=== PATIENT | male | born 1945 | race African-American/Black ===

== ENCOUNTER 2023-01-03 15:53 | Inpatient (IN) | payer MEDICARE, MEDICAID ==
[~2023-01-03] VITALS: Ht 185.4 cm; Wt 111.1 kg
[~2023-01-03 15:53] MED LIST: AMLO5TAB4 MT; ASPI-1497 PO; ATOR40TA70 PO; BENA40TA91 PO; GLIP5TAB12 PO; HYDR-4135 MT; METO-396 PO
[2023-01-03] MEDS ORDERED: ONDANSETRON HCL 4MG/2ML INJ IV STA (16:07)
[2023-01-03] MEDS ORDERED: MORPHINE SULFATE 4 MG/ML CPJ (NOT FOR IM USE) IV STA (16:07)
[2023-01-03] MEDS ORDERED: HYDRALAZINE 20MG/ML VIAL IV ONE (16:15)
[2023-01-03] MEDS ORDERED: SODIUM CHLORIDE 0.9% 1,000 ML IV ONE (16:15)
[2023-01-03 17:20] LABS: CHLORIDE 99 mEq/L (98-107)
[2023-01-03 17:23] LABS: HEMATOCRIT. 43.3 % (42.0-52.0); HEMOGLOBIN. 14.2 g/dL (14.0-18.0); MEAN CORPUSCULAR HEMOGLOBIN 27.3 pg (28.0-32.0); MEAN CORPUSCULAR VOLUME 82.9 fL (80.0-94.0); MEAN PLATELET VOLUME 11.2 fl (7.4-10.4); PLATELET 137 x1000/uL (130-400); RED BLOOD CELL COUNT 5.22 mill/uL (4.7-6.1); RED CELL DISTRIBUTION WIDTH 16.5 % (11.6-14.6)
[2023-01-03] MEDS ORDERED: ACETAMINOPHEN 325MG TABLET PO ONE (17:30)
[2023-01-03 17:36] LABS: INR 1.2; PARTIAL THROMBOPLASTIN TIME 29.6 sec (23.4-31.0); PROTHROMBIN TIME 12.4 sec (9.6-11.0)
[2023-01-03 17:46] LABS: CLARITY URINE CLEAR (CLEAR); COLOR URINE YELLOW (YELLOW); KETONES URINE NEGATIVE (NEGATIVE); LEUKOCYTE ESTERASE URINE NEGATIVE (NEGATIVE); NITRITE URINE NEGATIVE (NEGATIVE); OCCULT BLOOD URINE NEGATIVE (NEGATIVE); PH URINE 6.5 (4.5-8.0); PROTEIN URINE 3+ (NEGATIVE); SPECIFIC GRAVITY URINE 1.015 (1.005-1.030); UROBILINOGEN URINE 0.2 E.U./dL (0.2-1.0)
[2023-01-03] MEDS ORDERED: VANCOMYCIN 1G PREMIX 200 ML IV ONE (18:00)
[2023-01-03] MEDS ORDERED: PIPERACILLIN/TAZ 3.375G PREMIX 50 ML IV ONE (18:00)
[2023-01-03] MEDS ORDERED: VANCOMYCIN 1G PREMIX 200 ML IV NR (19:30)
[2023-01-03] MEDS ORDERED: ACETAMINOPHEN 325MG TABLET PO NR (19:30)
[2023-01-03] MEDS ORDERED: FUROSEMIDE 40MG/4ML VIAL IVP ONE (20:15)
[2023-01-03 20:34] LABS: PLATELET ESTIMATE NORMAL
[2023-01-03 23:30] VITALS: BP 148/96
[2023-01-04 03:59] VITALS: BP 150/89
[2023-01-04] MEDS ORDERED: DEXT 5%/0.9% NACL 1,000 ML IV SCH (06:00)
[2023-01-04] MEDS ORDERED: LACTULOSE 20G/30ML UDC PO PRN (06:00)
[2023-01-04] MEDS: PIPERACILLIN/TAZOBACTAM 3.375 G in DEXTROSE 5% WATER 50 ML IV SCH ×2 (07:01→14:20)
[2023-01-04 08:00] VITALS: BP 131/85
[2023-01-04] MEDS ORDERED: DEXTROSE 50% WATER 50ML SYRINGE IV PRN (08:00)
[2023-01-04] MEDS: ENOXAPARIN 30MG/0.3ML SYR SUBCUT SCH ×2 (08:33→21:02)
[2023-01-04] MEDS: INSULIN LISPRO 100 UNITS/ML SUBCUT SCH ×4 (08:35→21:02)
[2023-01-04] MEDS: PANTOPRAZOLE 40MG DR TABLET PO SCH (08:35)
[2023-01-04] MEDS ORDERED: ENOXAPARIN 40MG/0.4ML SYR SUBCUT SCH (09:00)
[2023-01-04] MEDS: BLOOD SUGAR DIAGNOSTIC STRIP TEST SCH ×3 (11:50→20:55)
[2023-01-04 12:00] VITALS: BP 143/72
[2023-01-04 16:00] VITALS: BP 124/63
[2023-01-04 20:00] VITALS: BP 120/74
[2023-01-05] VITALS: BP 126/74
[2023-01-05 01:03] LABS: BASOPHILS % 0.3 % (0.0-2.0); EOSINOPHILS % 0.6 % (0.0-5.0); HEMATOCRIT. 41.2 % (42.0-52.0); HEMOGLOBIN. 13.5 g/dL (14.0-18.0); LYMPHOCYTES % 7.5 % (20.0-50.0); MEAN CORPUSCULAR HEMOGLOBIN 27.1 pg (28.0-32.0); MEAN CORPUSCULAR VOLUME 82.5 fL (80.0-94.0); MEAN PLATELET VOLUME 10.1 fl (7.4-10.4); MONOCYTES % 4.5 % (2.0-8.0); NEUTROPHILS % 87.1 % (40.0-76.0); PLATELET 124 x1000/uL (130-400); RED BLOOD CELL COUNT 4.99 mill/uL (4.7-6.1); RED CELL DISTRIBUTION WIDTH 17.3 % (11.6-14.6)
[2023-01-05 01:15] LABS: CHLORIDE 101 mEq/L (98-107)
[2023-01-05] MEDS ORDERED: POTASSIUM CHLORIDE INJ 40 MEQ in DEXT 5% WATER 250 ML IV ONE (02:45)
[2023-01-05] MEDS: KCL 20MEQ/100ML X 2 FOR TOTAL KCL 40MEQ/200ML IV SCH ×2 (03:02→06:58)
[2023-01-05 04:00] VITALS: BP 135/87
[2023-01-05] MEDS: PIPERACILLIN/TAZOBACTAM 3.375 G in DEXTROSE 5% WATER 50 ML IV SCH ×4 (06:58→14:29)
[2023-01-05] MEDS: BLOOD SUGAR DIAGNOSTIC STRIP TEST SCH ×4 (07:12→21:22)
[2023-01-05 08:00] VITALS: BP 145/74
[2023-01-05] MEDS: INSULIN LISPRO 100 UNITS/ML SUBCUT SCH ×4 (08:33→21:29)
[2023-01-05] MEDS: ENOXAPARIN 30MG/0.3ML SYR SUBCUT SCH ×2 (08:35→21:28)
[2023-01-05] MEDS: PANTOPRAZOLE 40MG DR TABLET PO SCH (08:35)
[2023-01-05] MEDS: HYDRALAZINE 20MG/ML VIAL IV PRN (11:49)
[2023-01-05 12:00] VITALS: BP 128/74
[2023-01-05 16:00] VITALS: BP 139/92
[2023-01-05 20:00] VITALS: BP 135/85
[2023-01-05 20:21] LABS: CLARITY URINE CLEAR (CLEAR); COLOR URINE YELLOW (YELLOW); KETONES URINE NEGATIVE (NEGATIVE); LEUKOCYTE ESTERASE URINE NEGATIVE (NEGATIVE); NITRITE URINE NEGATIVE (NEGATIVE); OCCULT BLOOD URINE TRACE (NEGATIVE); PH URINE 6.5 (4.5-8.0); PROTEIN URINE 4+ (NEGATIVE); SPECIFIC GRAVITY URINE 1.027 (1.005-1.030); UROBILINOGEN URINE 0.2 E.U./dL (0.2-1.0)
[2023-01-05 20:46] LABS: CHLORIDE 101 mEq/L (98-107)
[2023-01-06] VITALS: BP 112/59
[2023-01-06] MEDS: PIPERACILLIN/TAZOBACTAM 3.375 G in DEXTROSE 5% WATER 50 ML IV SCH ×4 (00:55→21:54)
[2023-01-06 04:00] VITALS: BP 118/76
[2023-01-06] MEDS: BLOOD SUGAR DIAGNOSTIC STRIP TEST SCH ×4 (06:43→21:47)
[2023-01-06 08:00] VITALS: BP 121/71
[2023-01-06] MEDS: INSULIN LISPRO 100 UNITS/ML SUBCUT SCH ×4 (08:33→21:55)
[2023-01-06] MEDS: ENOXAPARIN 30MG/0.3ML SYR SUBCUT SCH ×2 (08:34→21:54)
[2023-01-06] MEDS: FAMOTIDINE 20MG TABLET PO SCH ×2 (08:35→21:54)
[2023-01-06 12:00] VITALS: BP 143/81
[2023-01-06] MEDS ORDERED: POTASSIUM CHLORIDE 20MEQ TABLET SR PO SCH (12:00)
[2023-01-06 16:00] VITALS: BP 129/71
[2023-01-06 16:01] LABS: BASOPHILS % 0.3 % (0.0-2.0); EOSINOPHILS % 0.6 % (0.0-5.0); HEMATOCRIT. 40.8 % (42.0-52.0); HEMOGLOBIN. 13.3 g/dL (14.0-18.0); LYMPHOCYTES % 11.4 % (20.0-50.0); MEAN CORPUSCULAR HEMOGLOBIN 27.5 pg (28.0-32.0); MEAN CORPUSCULAR VOLUME 84.2 fL (80.0-94.0); MEAN PLATELET VOLUME 10.3 fl (7.4-10.4); MONOCYTES % 3.5 % (2.0-8.0); NEUTROPHILS % 84.2 % (40.0-76.0); PLATELET 122 x1000/uL (130-400); RED BLOOD CELL COUNT 4.84 mill/uL (4.7-6.1); RED CELL DISTRIBUTION WIDTH 17.1 % (11.6-14.6)
[2023-01-06 16:19] LABS: CHLORIDE 100 mEq/L (98-107)
[2023-01-06 20:00] VITALS: BP 123/81
[2023-01-07] VITALS: BP 123/73
[2023-01-07 04:00] VITALS: BP 146/61
[2023-01-07] MEDS: PIPERACILLIN/TAZOBACTAM 3.375 G in DEXTROSE 5% WATER 50 ML IV SCH ×3 (05:27→22:43)
[2023-01-07] MEDS: BLOOD SUGAR DIAGNOSTIC STRIP TEST SCH ×4 (06:17→22:27)
[2023-01-07 06:54] LABS: CHLORIDE 102 mEq/L (98-107)
[2023-01-07 06:55] LABS: BASOPHILS % 0.3 % (0.0-2.0); HEMATOCRIT. 39.4 % (42.0-52.0); HEMOGLOBIN. 13.1 g/dL (14.0-18.0); LYMPHOCYTES % 11.6 % (20.0-50.0); MEAN CORPUSCULAR HEMOGLOBIN 27.8 pg (28.0-32.0); MEAN CORPUSCULAR VOLUME 83.4 fL (80.0-94.0); MEAN PLATELET VOLUME 10.6 fl (7.4-10.4); MONOCYTES % 3.8 % (2.0-8.0); NEUTROPHILS % 83.3 % (40.0-76.0); PLATELET 112 x1000/uL (130-400); RED BLOOD CELL COUNT 4.72 mill/uL (4.7-6.1); RED CELL DISTRIBUTION WIDTH 17.5 % (11.6-14.6)
[2023-01-07] MEDS: INSULIN LISPRO 100 UNITS/ML SUBCUT SCH ×4 (07:20→22:56)
[2023-01-07 08:00] VITALS: BP 144/78
[2023-01-07] MEDS: FAMOTIDINE 20MG TABLET PO SCH ×2 (09:28→22:42)
[2023-01-07] MEDS: ENOXAPARIN 30MG/0.3ML SYR SUBCUT SCH ×2 (09:28→22:42)
[2023-01-07 12:00] VITALS: BP 141/71
[2023-01-07 16:00] VITALS: BP 139/73
[2023-01-07 20:00] VITALS: BP 141/69
[2023-01-08] VITALS: BP 142/88
[2023-01-08 04:19] VITALS: BP 147/77
[2023-01-08] MEDS: PIPERACILLIN/TAZOBACTAM 3.375 G in DEXTROSE 5% WATER 50 ML IV SCH ×3 (05:54→22:41)
[2023-01-08] MEDS: BLOOD SUGAR DIAGNOSTIC STRIP TEST SCH ×4 (06:06→20:41)
[2023-01-08 08:00] VITALS: BP 157/90
[2023-01-08] MEDS: FAMOTIDINE 20MG TABLET PO SCH ×2 (08:34→20:47)
[2023-01-08] MEDS: ENOXAPARIN 30MG/0.3ML SYR SUBCUT SCH ×2 (08:35→20:48)
[2023-01-08] MEDS: INSULIN LISPRO 100 UNITS/ML SUBCUT SCH ×4 (08:39→20:48)
[2023-01-08 12:00] VITALS: BP 142/88
[2023-01-08 16:00] VITALS: BP 142/74
[2023-01-08] MEDS ORDERED: POTASSIUM CHLORIDE 20MEQ TABLET SR PO NR (16:15)
[2023-01-08 20:00] VITALS: BP 142/85
[2023-01-09] VITALS (7 sets, daily range): BP systolic 134–162; BP diastolic 77–87
[2023-01-09] MEDS: BLOOD SUGAR DIAGNOSTIC STRIP TEST SCH ×4 (07:16→20:31)
[2023-01-09] MEDS: INSULIN LISPRO 100 UNITS/ML SUBCUT SCH ×4 (08:01→20:41)
[2023-01-09] MEDS: FAMOTIDINE 20MG TABLET PO SCH ×2 (08:02→20:38)
[2023-01-09] MEDS: ENOXAPARIN 30MG/0.3ML SYR SUBCUT SCH ×2 (08:02→20:39)
[2023-01-09 11:44] LABS: BASOPHILS % 0.7 % (0.0-2.0); EOSINOPHILS % 0.6 % (0.0-5.0); HEMATOCRIT. 37.8 % (42.0-52.0); HEMOGLOBIN. 12.5 g/dL (14.0-18.0); LYMPHOCYTES % 14.1 % (20.0-50.0); MEAN CORPUSCULAR HEMOGLOBIN 27.7 pg (28.0-32.0); MEAN CORPUSCULAR VOLUME 84.1 fL (80.0-94.0); MEAN PLATELET VOLUME 10.2 fl (7.4-10.4); MONOCYTES % 4.1 % (2.0-8.0); NEUTROPHILS % 80.5 % (40.0-76.0); PLATELET 113 x1000/uL (130-400); RED BLOOD CELL COUNT 4.49 mill/uL (4.7-6.1)
[2023-01-09 11:53] LABS: CHLORIDE 104 mEq/L (98-107)
[2023-01-09] MEDS: HYDRALAZINE 20MG/ML VIAL IV PRN (13:14)
[2023-01-09] MEDS ORDERED: POTASSIUM CHLORIDE 20MEQ TABLET SR PO NR (16:15)
[2023-01-10 00:06] VITALS: BP 144/92
[2023-01-10 04:00] VITALS: BP 140/82
[2023-01-10] MEDS: BLOOD SUGAR DIAGNOSTIC STRIP TEST SCH (06:35)
[2023-01-10 08:00] VITALS: BP 16/95
[2023-01-10 08:10] VITALS: BP 122/65
[2023-01-10] MEDS: FAMOTIDINE 20MG TABLET PO SCH (09:50)
[2023-01-10] MEDS: ENOXAPARIN 30MG/0.3ML SYR SUBCUT SCH (09:51)
[2023-01-10] MEDS: INSULIN LISPRO 100 UNITS/ML SUBCUT SCH (09:53)
[2023-01-10 11:00] VITALS: BP 128/95
== END 2023-01-10 11:30 | disposition home health service (06) | DRG 699 ==
LOC: ER 15:53 → 3WST 19:42 → EDBEDREQ 21:32 → EDBEDREQTM 21:32
PROVIDERS: ADMIT Internal Medicine; ATTEND Internal Medicine
DX: N13.9 Obstructive and reflux uropathy, unspecified (principal); E87.1 Hypo-osmolality and hyponatremia; L03.119 Cellulitis of unspecified part of limb; E11.65 Type 2 diabetes mellitus with hyperglycemia; E78.00 Pure hypercholesterolemia, unspecified; E87.6 Hypokalemia; Z20.822 Contact with and (suspected) exposure to COVID-19; I48.91 Unspecified atrial fibrillation; I25.10 Atherosclerotic heart disease of native coronary artery without angina pectoris; D72.829 Elevated white blood cell count, unspecified; I10 Essential (primary) hypertension; Z95.1 Presence of aortocoronary bypass graft; Z86.73 Personal history of transient ischemic attack (TIA), and cerebral infarction without residual deficits; Z90.49 Acquired absence of other specified parts of digestive tract
CPT/HCPCS: 36415; 71045; 74176; 76705; 80048; 80053; 81003; 82962; 83036; 83605; 83880; 84145; 84484; 85025; 86850; 86900; 87426; 93005; 99291; C9803; J0360; J1650; J1815; J1940; J2543; J3370; J3480; J7030; J7042; J7060

== ENCOUNTER 2024-11-12 20:52 | Inpatient (IN) | payer BC, MEDICAID ==
[~2024-11-12] VITALS: Ht 185.4 cm; Wt 127.5 kg
[~2024-11-12 20:52] MED LIST changes: -AMLO5TAB4 MT; +APIX5TAB MT; +ATOR-2 PO; -ATOR40TA70 PO; -BENA40TA91 PO; +CLOP75TA33 PO; -GLIP5TAB12 PO; +GLIP5TAB22 PO; -HYDR-4135 MT; +LEVO250T74 MT; -METO-396 PO; +METO-539 PO
[2024-11-12 22:32] LABS: HEMATOCRIT. 42.9 % (42.0-52.0); HEMOGLOBIN. 13.4 g/dL (14.0-18.0); MEAN CORPUSCULAR HEMOGLOBIN 25.4 pg (28.0-32.0); MEAN CORPUSCULAR HGB CONC 31.3 g/dL (31.0-37.0); MEAN CORPUSCULAR VOLUME 81.1 fL (80.0-94.0); PLATELET 122 x1000/uL (130-400); RED BLOOD CELL COUNT 5.29 mill/uL (4.7-6.1); RED CELL DISTRIBUTION WIDTH 16.5 % (11.6-14.6); WHITE BLOOD COUNT 17.2 x1000/uL (4.5-11.0)
[2024-11-12 22:33] LABS: DIFFERENTIAL COMMENT 1
[2024-11-12 22:38] LABS: POTASSIUM 3.5 mEq/L (3.5-5.1)
[2024-11-12 22:39] LABS: CALCIUM 9.1 mg/dL (8.7-10.4)
[2024-11-12 22:40] LABS: INFLUENZA TYPE A Presumptive Negative (Pres. Neg.)
[2024-11-12 22:41] LABS: INFLUENZA TYPE B Presumptive Negative (Pres. Neg.)
[2024-11-12 22:44] LABS: CREATININE 1.6 mg/dL (0.6-1.3)
[2024-11-12 23:36] LABS: ANISOCYTOSIS 1+; PLATELET ESTIMATE SLIGHTLY DECREASED
[2024-11-13] LABS: TROPONIN I HIGH SENSITIVITY 30 ng/L (3.0-53)
[2024-11-13] MEDS ORDERED: NITROGLYCERIN OINT 1GM/INCH UDPKT TD NR (00:30)
[2024-11-13] MEDS: FUROSEMIDE 40MG/4ML VIAL IVP NR (06:01)
[2024-11-13 17:30] VITALS: BP 133/91; PULSE 85; RESP 16; TEMP 36.7
[2024-11-13 20:00] VITALS: BP 166/88; PULSE 97; RESP 19; TEMP 37.9; O2SAT 98
[2024-11-13] MEDS ORDERED: ONDANSETRON HCL 4MG/2ML INJ IV PRN (22:15)
[2024-11-13] MEDS ORDERED: ENOXAPARIN 40MG/0.4ML SYR SUBCUT SCH (22:15)
[2024-11-14] VITALS (13 sets, daily range): BP systolic 109–181; BP diastolic 52–85; PULSE 79–114; RESP 16–35; TEMP 36.5–37.9; O2SAT 93–100
[2024-11-14] MEDS ORDERED: CLONIDINE 0.1MG TABLET PO PRN (01:45)
[2024-11-14 08:10] LABS: HEMATOCRIT. 42.3 % (42.0-52.0); HEMOGLOBIN. 13.5 g/dL (14.0-18.0); MEAN CORPUSCULAR HEMOGLOBIN 26.6 pg (28.0-32.0); MEAN CORPUSCULAR VOLUME 83.1 fL (80.0-94.0); MEAN PLATELET VOLUME 11.4 fl (7.4-10.4); PLATELET 129 x1000/uL (130-400); RED BLOOD CELL COUNT 5.08 mill/uL (4.7-6.1); RED CELL DISTRIBUTION WIDTH 16.7 % (11.6-14.6); WHITE BLOOD COUNT 30.7 x1000/uL (4.5-11.0)
[2024-11-14 08:13] LABS: DIFFERENTIAL COMMENT 1
[2024-11-14 08:14] LABS: CHLORIDE 103 mEq/L (98-107); POTASSIUM 3.4 mEq/L (3.5-5.1); SODIUM 140 mEq/L (136-145)
[2024-11-14 08:15] LABS: CALCIUM 9.5 mg/dL (8.7-10.4); CARBON DIOXIDE 20 mEq/L (21-32)
[2024-11-14 08:20] LABS: CREATININE 1.8 mg/dL (0.6-1.3); GLUCOSE 218 mg/dL (70-105); TRIGLYCERIDE 111 mg/dL (0-150); UREA NITROGEN BLOOD 26 mg/dL (9-23)
[2024-11-14 08:21] LABS: LDL CHOLESTEROL 41 mg/dL (5-100); PROTEIN TOTAL 7.5 g/dL (6.0-8.3)
[2024-11-14 08:22] LABS: ALANINE AMINOTRANSFERASE 21 IU/L (10-49); ALBUMIN 3.9 g/dL (3.2-4.8); ASPARTATE AMINOTRANSFERASE 50 IU/L (<34); BILIRUBIN DIRECT 1.2 mg/dL (<=3.0); BILIRUBIN TOTAL 2.6 mg/dL (0.1-1.0); CHOLESTEROL 103 mg/dL (<200); HDL CHOLESTEROL 37 mg/dL (>55); PHOSPHORUS 3.9 mg/dL (2.5-4.9)
[2024-11-14] MEDS: ASPIRIN 81MG EC TABLET PO SCH (08:41)
[2024-11-14] MEDS: APIXABAN 5 MG TABLET PO SCH (08:41)
[2024-11-14] MEDS: FUROSEMIDE 40MG/4ML VIAL IVP SCH ×2 (08:44→18:40)
[2024-11-14] MEDS: METOPROLOL TARTRATE 50MG TABLET PO SCH (08:44)
[2024-11-14] MEDS: CLOPIDOGREL 75MG TABLET PO SCH (08:45)
[2024-11-14] MEDS ORDERED: NALOXONE HCL 0.4MG/ML VIAL IV PRN (09:30)
[2024-11-14] MEDS: BLOOD SUGAR DIAGNOSTIC STRIP TEST SCH (12:20)
[2024-11-14] MEDS: VANCOMYCIN 1GM PMX (XELLIA) 200 ML IV SCH (13:41)
[2024-11-14] MEDS: INSULIN LISPRO 100 UNITS/ML SUBCUT SCH (13:41)
[2024-11-14] MEDS ORDERED: PIPERACILLIN/TAZO 3.375G/100ML 100 ML IV SCH (14:00)
[2024-11-14 14:49] LABS: BG BASE EXCESS -2.7 mmol/L (-2.0-3.0); BG CARBOXYHEMOGLOBIN 1.4 % (0.5-1.5); BG DEOXYHEMOGLOBIN 6.1 % (0.0-5.0); BG FRACTION INSPIRED OXYGEN 34; BG HCO3 ACT 19.1 mmol/L (21.0-28.0); BG METHEMOGLOBIN 0.2 % (0.5-1.5); BG OXYGEN SATURATION 93.8 % (94.0-98.0); BG OXYHEMOGLOBIN 92.3 % (94.0-98.0); BG PH 7.485 (7.350-7.450); BG PO2 67.4 mmHg (83.0-108.0); BG SAMPLE SITE RIGHT RADIAL; BG VENT MODE NASAL CANNULA
[2024-11-14] MEDS: FUROSEMIDE 40MG/4ML VIAL IVP NR (16:02)
[2024-11-14] MEDS: METHYLPREDNISOLONE SOD SUCC 40MG/ML (ACT-O-VIAL) IV SCH (16:02)
[2024-11-14] MEDS: PIPERACILLIN/TAZO 3.375G/50ML IV SCH (18:16)
[2024-11-14] MEDS: VANCOMYCIN 1GM/200ML PMX (BAXTER) IV SCH (18:41)
[2024-11-14 21:31] LABS: PLATELET ESTIMATE DECREASED
[2024-11-15] VITALS (12 sets, daily range): BP systolic 111–139; BP diastolic 67–87; PULSE 68–95; RESP 15–29; TEMP 35.7–36.7; O2SAT 94–100
[2024-11-15 11:28] LABS: HEMATOCRIT. 37.3 % (42.0-52.0); HEMOGLOBIN. 11.9 g/dL (14.0-18.0); MEAN CORPUSCULAR HEMOGLOBIN 25.8 pg (28.0-32.0); MEAN CORPUSCULAR HGB CONC 31.8 g/dL (31.0-37.0); MEAN CORPUSCULAR VOLUME 81.3 fL (80.0-94.0); MEAN PLATELET VOLUME 10.6 fl (7.4-10.4); PLATELET 107 x1000/uL (130-400); RED BLOOD CELL COUNT 4.59 mill/uL (4.7-6.1); RED CELL DISTRIBUTION WIDTH 16.4 % (11.6-14.6); WHITE BLOOD COUNT 21.2 x1000/uL (4.5-11.0)
[2024-11-15 11:32] LABS: DIFFERENTIAL COMMENT 1; POTASSIUM 3.4 mEq/L (3.5-5.1)
[2024-11-15 11:38] LABS: CREATININE 2.3 mg/dL (0.6-1.3)
[2024-11-15 19:06] LABS: ANISOCYTOSIS 1+; PLATELET ESTIMATE SLIGHTLY DECREASED
[2024-11-15] MEDS: VANCOMYCIN 1GM/200ML PMX (BAXTER) IV SCH (20:22)
[2024-11-15] MEDS: INSULIN GLARGINE 100 UNITS/ML SUBCUT SCH (21:28)
[2024-11-15 22:39] LABS: CLARITY URINE CLOUDY (CLEAR); COLOR URINE DARK YELLOW (YELLOW); GLUCOSE URINE 1+ (NEGATIVE); KETONES URINE TRACE (NEGATIVE); LEUKOCYTE ESTERASE URINE NEGATIVE (NEGATIVE); NITRITE URINE NEGATIVE (NEGATIVE); OCCULT BLOOD URINE 1+ (NEGATIVE); PH URINE 5.5 (4.5-8.0); PROTEIN URINE 3+ (NEGATIVE); SPECIFIC GRAVITY URINE 1.021 (1.005-1.030)
[2024-11-15 23:12] LABS: BACTERIA URINE 2+; SQUAMOUS EPITHELIAL CELL URINE FEW /lpf (RARE/1+); WBC URINE 0-2 /hpf (0-2)
[2024-11-15 23:13] LABS: FINE GRANULAR CASTS URINE 0-5 /lpf
[2024-11-16] VITALS (11 sets, daily range): BP systolic 106–133; BP diastolic 72–91; PULSE 61–83; RESP 0–23; TEMP 36.2–36.6; O2SAT 94–98
[2024-11-16 11:12] LABS: HEMATOCRIT. 37.4 % (42.0-52.0); HEMOGLOBIN. 11.9 g/dL (14.0-18.0); MEAN CORPUSCULAR HEMOGLOBIN 25.6 pg (28.0-32.0); MEAN CORPUSCULAR HGB CONC 31.9 g/dL (31.0-37.0); MEAN CORPUSCULAR VOLUME 80.2 fL (80.0-94.0); MEAN PLATELET VOLUME 10.7 fl (7.4-10.4); PLATELET 132 x1000/uL (130-400); RED BLOOD CELL COUNT 4.66 mill/uL (4.7-6.1); RED CELL DISTRIBUTION WIDTH 16.5 % (11.6-14.6); WHITE BLOOD COUNT 21.5 x1000/uL (4.5-11.0)
[2024-11-16 11:15] LABS: POTASSIUM 3.2 mEq/L (3.5-5.1)
[2024-11-16 11:16] LABS: CALCIUM 8.8 mg/dL (8.7-10.4)
[2024-11-16 11:21] LABS: CREATININE 2.5 mg/dL (0.6-1.3)
[2024-11-16 11:24] LABS: DIFFERENTIAL COMMENT 1
[2024-11-16 12:44] LABS: HEMATOCRIT. 38.6 % (42.0-52.0); HEMOGLOBIN. 12.3 g/dL (14.0-18.0); MEAN CORPUSCULAR HEMOGLOBIN 25.8 pg (28.0-32.0); MEAN CORPUSCULAR HGB CONC 31.9 g/dL (31.0-37.0); MEAN CORPUSCULAR VOLUME 80.7 fL (80.0-94.0); MEAN PLATELET VOLUME 10.7 fl (7.4-10.4); PLATELET 132 x1000/uL (130-400); RED BLOOD CELL COUNT 4.78 mill/uL (4.7-6.1); RED CELL DISTRIBUTION WIDTH 16.4 % (11.6-14.6)
[2024-11-16 12:55] LABS: POTASSIUM 3.4 mEq/L (3.5-5.1)
[2024-11-16 12:56] LABS: CALCIUM 8.7 mg/dL (8.7-10.4)
[2024-11-16 12:58] LABS: DIFFERENTIAL COMMENT 1
[2024-11-16 13:01] LABS: CREATININE 2.5 mg/dL (0.6-1.3)
[2024-11-16 19:57] LABS: ANISOCYTOSIS 1+; MICROCYTOSIS 1+; PLATELET ESTIMATE NORMAL
[2024-11-16 20:03] LABS: ANISOCYTOSIS 1+; PLATELET ESTIMATE NORMAL
[2024-11-16 20:04] LABS: MICROCYTOSIS 1+
[2024-11-17] VITALS (12 sets, daily range): BP systolic 110–140; BP diastolic 67–95; PULSE 57–69; RESP 9–23; TEMP 36.2–36.5; O2SAT 91–97
[2024-11-17 06:19] LABS: POTASSIUM 3.2 mEq/L (3.5-5.1)
[2024-11-17 06:21] LABS: CALCIUM 8.8 mg/dL (8.7-10.4)
[2024-11-17 06:25] LABS: CREATININE 2.5 mg/dL (0.6-1.3)
[2024-11-17 07:51] LABS: HEMATOCRIT. 36.7 % (42.0-52.0); HEMOGLOBIN. 11.9 g/dL (14.0-18.0); MEAN CORPUSCULAR HEMOGLOBIN 26.3 pg (28.0-32.0); MEAN CORPUSCULAR HGB CONC 32.4 g/dL (31.0-37.0); MEAN CORPUSCULAR VOLUME 81.2 fL (80.0-94.0); MEAN PLATELET VOLUME 10.7 fl (7.4-10.4); PLATELET 120 x1000/uL (130-400); RED BLOOD CELL COUNT 4.51 mill/uL (4.7-6.1); RED CELL DISTRIBUTION WIDTH 16.4 % (11.6-14.6); WHITE BLOOD COUNT 19.3 x1000/uL (4.5-11.0)
[2024-11-17 08:38] LABS: DIFFERENTIAL COMMENT 1
[2024-11-17 14:37] LABS: ANISOCYTOSIS 1+; PLATELET ESTIMATE SLIGHTLY DECREASED
[2024-11-17] MEDS: VANCOMYCIN 750MG/250ML 250 ML IV NR (22:33)
[2024-11-18] VITALS (10 sets, daily range): BP systolic 125–168; BP diastolic 76–122; PULSE 58–73; RESP 16–46; TEMP 36.1–36.8; O2SAT 85–99
[2024-11-18 06:18] LABS: POTASSIUM 3.2 mEq/L (3.5-5.1)
[2024-11-18 06:20] LABS: CALCIUM 8.7 mg/dL (8.7-10.4)
[2024-11-18 06:24] LABS: CREATININE 2.8 mg/dL (0.6-1.3)
[2024-11-18 06:28] LABS: HEMATOCRIT. 35.2 % (42.0-52.0); HEMOGLOBIN. 11.6 g/dL (14.0-18.0); MEAN CORPUSCULAR HEMOGLOBIN 26.1 pg (28.0-32.0); MEAN CORPUSCULAR HGB CONC 32.9 g/dL (31.0-37.0); MEAN CORPUSCULAR VOLUME 79.4 fL (80.0-94.0); MEAN PLATELET VOLUME 10.3 fl (7.4-10.4); PLATELET 119 x1000/uL (130-400); RED BLOOD CELL COUNT 4.43 mill/uL (4.7-6.1); RED CELL DISTRIBUTION WIDTH 15.8 % (11.6-14.6); WHITE BLOOD COUNT 22.8 x1000/uL (4.5-11.0)
[2024-11-18 07:25] LABS: DIFFERENTIAL COMMENT 1
[2024-11-18 09:31] LABS: INR 1.1; PROTHROMBIN TIME 12.4 sec (9.6-11.0)
[2024-11-18] MEDS ORDERED: KCL 20MEQ/100ML PREMIX 100 ML IV ONE (10:00)
[2024-11-18] MEDS: KCL 10MEQ/50ML X 3 FOR TOTAL KCL 30MEQ/150ML IV SCH (11:34)
[2024-11-18 12:00] LABS: ANISOCYTOSIS 1+; PLATELET ESTIMATE SLIGHTLY DECREASED
[2024-11-18] MEDS ORDERED: LIDOCAINE HCL 1% 20ML VIAL ONE (12:25)
[2024-11-18] MEDS ORDERED: HEPARIN 1000 UNITS/ML 10ML ONE ×2 (12:25→13:37)
[2024-11-18] MEDS ORDERED: IODIXANOL 320MG/ML 100 ML BOTTLE IV ONE (12:25)
[2024-11-18] MEDS ORDERED: FENTANYL CITRATE/PF 50MCG/ML 2ML VIAL ONE (12:52)
[2024-11-18] MEDS ORDERED: MIDAZOLAM HCL 2 MG/2 ML VIAL ONE (12:52)
[2024-11-18] MEDS ORDERED: PROTAMINE SULFATE 10MG/ML VIAL 25ML IV ONE (14:31)
[2024-11-18] MEDS: HYDROCODONE/ACETAMINOPHEN 5/325MG TABLET PO PRN (22:03)
[2024-11-19] VITALS (12 sets, daily range): BP systolic 126–161; BP diastolic 63–93; PULSE 46–65; RESP 0–22; TEMP 36–36.6; O2SAT 94–99
[2024-11-19 06:40] LABS: POTASSIUM 3.5 mEq/L (3.5-5.1)
[2024-11-19 06:41] LABS: CALCIUM 8.3 mg/dL (8.7-10.4)
[2024-11-19 06:46] LABS: CREATININE 2.6 mg/dL (0.6-1.3)
[2024-11-19 07:35] LABS: HEMOGLOBIN. 12.1 g/dL (14.0-18.0); MEAN CORPUSCULAR HEMOGLOBIN 26.3 pg (28.0-32.0); MEAN CORPUSCULAR HGB CONC 32.7 g/dL (31.0-37.0); MEAN CORPUSCULAR VOLUME 80.6 fL (80.0-94.0); MEAN PLATELET VOLUME 10.4 fl (7.4-10.4); PLATELET 137 x1000/uL (130-400); RED BLOOD CELL COUNT 4.59 mill/uL (4.7-6.1); RED CELL DISTRIBUTION WIDTH 15.8 % (11.6-14.6)
[2024-11-19 07:58] LABS: DIFFERENTIAL COMMENT 1
[2024-11-19] MEDS: CLOPIDOGREL 75MG TABLET PO SCH (09:19)
[2024-11-19] MEDS ORDERED: HYDROCODONE/ACETAMINOPHEN 5/325MG TABLET PO PRN (17:02)
[2024-11-19] MEDS ORDERED: NALOXONE HCL 0.4MG/ML VIAL IV PRN (17:15)
[2024-11-19] MEDS ORDERED: MORPHINE SULFATE 2 MG/ML INJ (NOT FOR IM USE) IV PRN (17:15)
[2024-11-19 17:53] LABS: PLATELET ESTIMATE NORMAL
[2024-11-19] MEDS: VANCOMYCIN 1G PREMIX 200 ML IV SCH (21:55)
[2024-11-20] VITALS (12 sets, daily range): BP systolic 135–170; BP diastolic 71–130; PULSE 47–71; RESP 0–23; TEMP 36.4–36.6; O2SAT 92–98
[2024-11-20] MEDS: CLONIDINE 0.1MG TABLET PO PRN (04:17)
[2024-11-20 06:10] LABS: HEMATOCRIT. 37.3 % (42.0-52.0); HEMOGLOBIN. 12.1 g/dL (14.0-18.0); MEAN CORPUSCULAR HEMOGLOBIN 25.8 pg (28.0-32.0); MEAN CORPUSCULAR HGB CONC 32.4 g/dL (31.0-37.0); MEAN CORPUSCULAR VOLUME 79.8 fL (80.0-94.0); PLATELET 131 x1000/uL (130-400); RED BLOOD CELL COUNT 4.67 mill/uL (4.7-6.1); RED CELL DISTRIBUTION WIDTH 16.1 % (11.6-14.6); WHITE BLOOD COUNT 21.2 x1000/uL (4.5-11.0)
[2024-11-20 06:42] LABS: DIFFERENTIAL COMMENT 1; POTASSIUM 3.7 mEq/L (3.5-5.1)
[2024-11-20 06:44] LABS: CALCIUM 8.3 mg/dL (8.7-10.4)
[2024-11-20 06:48] LABS: CREATININE 2.5 mg/dL (0.6-1.3)
[2024-11-20 17:10] LABS: MICROCYTOSIS 1+; PLATELET ESTIMATE NORMAL
[2024-11-21] VITALS (13 sets, daily range): BP systolic 121–171; BP diastolic 63–146; PULSE 48–72; RESP 0–18; TEMP 36.1–36.7; O2SAT 94–99
[2024-11-21 07:18] LABS: HEMATOCRIT. 35.3 % (42.0-52.0); HEMOGLOBIN. 11.4 g/dL (14.0-18.0); MEAN CORPUSCULAR HEMOGLOBIN 25.8 pg (28.0-32.0); MEAN CORPUSCULAR HGB CONC 32.2 g/dL (31.0-37.0); MEAN CORPUSCULAR VOLUME 80.2 fL (80.0-94.0); MEAN PLATELET VOLUME 9.9 fl (7.4-10.4); PLATELET 147 x1000/uL (130-400); RED BLOOD CELL COUNT 4.41 mill/uL (4.7-6.1); RED CELL DISTRIBUTION WIDTH 16.1 % (11.6-14.6); WHITE BLOOD COUNT 20.1 x1000/uL (4.5-11.0)
[2024-11-21 07:39] LABS: CALCIUM 8.3 mg/dL (8.7-10.4); POTASSIUM 3.7 mEq/L (3.5-5.1)
[2024-11-21 07:45] LABS: CREATININE 2.1 mg/dL (0.6-1.3)
[2024-11-21 08:10] LABS: DIFFERENTIAL COMMENT 1
[2024-11-21] MEDS: IPRATROPIUM/ALBUTEROL 0.5-3(2.5)MG/3ML NEB HHN PRN (12:43)
[2024-11-21 14:54] LABS: PLATELET ESTIMATE NORMAL
[2024-11-21 14:55] LABS: ANISOCYTOSIS 2+
[2024-11-21] MEDS ORDERED: CEFEPIME 1GM/50ML 50 ML IV SCH ×2 (17:00→18:30)
[2024-11-21] MEDS ORDERED: CEFEPIME 2GM/100ML 100 ML IV SCH (18:00)
[2024-11-21] MEDS: CEFEPIME 2GM/50ML DUPLEX 50 ML IV SCH (18:32)
[2024-11-21] MEDS: VANCOMYCIN 1.5GM/250ML 250 ML IV NR (19:39)
[2024-11-22] VITALS (12 sets, daily range): BP systolic 139–164; BP diastolic 74–97; PULSE 55–69; RESP 10–18; TEMP 36.5–36.8; O2SAT 93–99
[2024-11-22 08:19] LABS: HEMATOCRIT 35.6 % (42.0-52.0); HEMOGLOBIN 11.6 g/dL (14.0-18.0); MEAN CORPUSCULAR HEMOGLOBIN 26.8 pg (28.0-32.0); MEAN CORPUSCULAR HGB CONC 32.6 g/dL (31.0-37.0); MEAN CORPUSCULAR VOLUME 82.3 fL (80.0-94.0); PLATELET 148 x1000/uL (130-400); RED BLOOD CELL COUNT 4.33 mill/uL (4.7-6.1); RED CELL DISTRIBUTION WIDTH 15.9 % (11.6-14.6); WHITE BLOOD COUNT 20.5 x1000/uL (4.5-11.0)
[2024-11-22] MEDS: METHYLPREDNISOLONE SOD SUCC 40MG/ML (ACT-O-VIAL) IV SCH (19:50)
[2024-11-22] MEDS: CEFEPIME 2GM/50ML DUPLEX 50 ML IV SCH (19:50)
[2024-11-23] VITALS (12 sets, daily range): BP systolic 127–167; BP diastolic 66–98; PULSE 48–68; RESP 7–19; TEMP 36.5–36.8; O2SAT 94–100
[2024-11-23 07:09] LABS: POTASSIUM 3.8 mEq/L (3.5-5.1)
[2024-11-23 07:10] LABS: CALCIUM 8.2 mg/dL (8.7-10.4)
[2024-11-23 07:15] LABS: CREATININE 1.7 mg/dL (0.6-1.3)
[2024-11-23 09:33] LABS: HEMATOCRIT. 36.7 % (42.0-52.0); HEMOGLOBIN. 11.9 g/dL (14.0-18.0); MEAN CORPUSCULAR HEMOGLOBIN 26.5 pg (28.0-32.0); MEAN CORPUSCULAR HGB CONC 32.4 g/dL (31.0-37.0); MEAN CORPUSCULAR VOLUME 81.9 fL (80.0-94.0); MEAN PLATELET VOLUME 10.1 fl (7.4-10.4); PLATELET 150 x1000/uL (130-400); RED BLOOD CELL COUNT 4.49 mill/uL (4.7-6.1); RED CELL DISTRIBUTION WIDTH 16.3 % (11.6-14.6); WHITE BLOOD COUNT 22.4 x1000/uL (4.5-11.0)
[2024-11-23 09:51] LABS: DIFFERENTIAL COMMENT 1
[2024-11-23 13:08] LABS: ANISOCYTOSIS 1+; MICROCYTOSIS 1+; NUCLEATED RED BLOOD CELLS 1 /100 WBC; PLATELET ESTIMATE NORMAL
[2024-11-23] MEDS: VANCOMYCIN 1.5GM/250ML 250 ML IV SCH (21:08)
[2024-11-24] VITALS (12 sets, daily range): BP systolic 111–171; BP diastolic 64–88; PULSE 43–84; RESP 10–28; TEMP 36.1–36.5; O2SAT 96–100
[2024-11-24] MEDS: HYDRALAZINE HCL 25MG TABLET PO SCH (14:22)
[2024-11-25] VITALS (12 sets, daily range): BP systolic 103–159; BP diastolic 64–101; PULSE 64–90; RESP 14–20; TEMP 36.4–37.1; O2SAT 92–96
[2024-11-25 06:45] LABS: POTASSIUM 3.8 mEq/L (3.5-5.1)
[2024-11-25 06:46] LABS: CALCIUM 8.4 mg/dL (8.7-10.4)
[2024-11-25 06:51] LABS: CREATININE 1.5 mg/dL (0.6-1.3)
[2024-11-25 07:13] LABS: HEMOGLOBIN. 12.5 g/dL (14.0-18.0); MEAN CORPUSCULAR HEMOGLOBIN 26.7 pg (28.0-32.0); MEAN CORPUSCULAR HGB CONC 32.8 g/dL (31.0-37.0); MEAN CORPUSCULAR VOLUME 81.4 fL (80.0-94.0); PLATELET 141 x1000/uL (130-400); RED BLOOD CELL COUNT 4.67 mill/uL (4.7-6.1); RED CELL DISTRIBUTION WIDTH 16.2 % (11.6-14.6); WHITE BLOOD COUNT 31.2 x1000/uL (4.5-11.0)
[2024-11-25 07:37] LABS: DIFFERENTIAL COMMENT 1
[2024-11-25 18:20] LABS: PLATELET ESTIMATE NORMAL
[2024-11-25] MEDS: DIPHENHYDRAMINE 50MG/ML VIAL IV PRN (23:53)
[2024-11-26] VITALS (12 sets, daily range): BP systolic 100–142; BP diastolic 49–82; PULSE 71–98; RESP 12–22; TEMP 36.5–37.2; O2SAT 88–98
[2024-11-26] MEDS: ACETAMINOPHEN 325MG TABLET PO PRN (01:22)
[2024-11-26 07:04] LABS: CHLORIDE 104 mEq/L (98-107); POTASSIUM 3.2 mEq/L (3.5-5.1); SODIUM 138 mEq/L (136-145)
[2024-11-26 07:06] LABS: CARBON DIOXIDE 25 mEq/L (21-32)
[2024-11-26 07:07] LABS: CALCIUM 8.4 mg/dL (8.7-10.4)
[2024-11-26 07:11] LABS: CREATININE 1.4 mg/dL (0.6-1.3); GLUCOSE 58 mg/dL (70-105); UREA NITROGEN BLOOD 40 mg/dL (9-23)
[2024-11-26 07:13] LABS: ALANINE AMINOTRANSFERASE 41 IU/L (10-49); ALBUMIN 2.9 g/dL (3.2-4.8); ASPARTATE AMINOTRANSFERASE 27 IU/L (<34); BILIRUBIN DIRECT 0.3 mg/dL (<=3.0); HEMATOCRIT. 38.8 % (42.0-52.0); HEMOGLOBIN. 12.6 g/dL (14.0-18.0); MEAN CORPUSCULAR HEMOGLOBIN 26.5 pg (28.0-32.0); MEAN CORPUSCULAR HGB CONC 32.4 g/dL (31.0-37.0); MEAN CORPUSCULAR VOLUME 81.7 fL (80.0-94.0); MEAN PLATELET VOLUME 10.9 fl (7.4-10.4); PLATELET 151 x1000/uL (130-400); RED BLOOD CELL COUNT 4.75 mill/uL (4.7-6.1); RED CELL DISTRIBUTION WIDTH 16.7 % (11.6-14.6); WHITE BLOOD COUNT 30.2 x1000/uL (4.5-11.0)
[2024-11-26 07:14] LABS: BILIRUBIN TOTAL 0.6 mg/dL (0.1-1.0); PROTEIN TOTAL 5.9 g/dL (6.0-8.3)
[2024-11-26 07:29] LABS: DIFFERENTIAL COMMENT 1
[2024-11-26] MEDS: HYDROCORTISONE 2.5% CREAM 28GM TOP SCH (08:48)
[2024-11-26] MEDS: POTASSIUM CHLORIDE 20MEQ TABLET SR PO NR (14:41)
[2024-11-26 16:11] LABS: ANISOCYTOSIS 1+; PLATELET ESTIMATE NORMAL
[2024-11-27] VITALS (12 sets, daily range): BP systolic 107–149; BP diastolic 54–83; PULSE 76–95; RESP 16–25; TEMP 36.4–37.1; O2SAT 88–99
[2024-11-28] VITALS (11 sets, daily range): BP systolic 111–143; BP diastolic 55–79; PULSE 67–82; RESP 13–22; TEMP 36.2–36.9; O2SAT 96–99
[2024-11-28 07:24] LABS: CALCIUM 8.2 mg/dL (8.7-10.4); HEMOGLOBIN. 10.7 g/dL (14.0-18.0); MEAN CORPUSCULAR HEMOGLOBIN 26.2 pg (28.0-32.0); MEAN CORPUSCULAR HGB CONC 32.4 g/dL (31.0-37.0); MEAN CORPUSCULAR VOLUME 80.8 fL (80.0-94.0); PLATELET 102 x1000/uL (130-400); POTASSIUM 3.4 mEq/L (3.5-5.1); RED BLOOD CELL COUNT 4.09 mill/uL (4.7-6.1); WHITE BLOOD COUNT 21.1 x1000/uL (4.5-11.0)
[2024-11-28 07:30] LABS: CREATININE 1.5 mg/dL (0.6-1.3)
[2024-11-28 08:38] LABS: DIFFERENTIAL COMMENT 1
[2024-11-28] MEDS: DEXTROSE 50% WATER 50ML SYRINGE IV PRN (10:51)
[2024-11-28 18:16] LABS: CLARITY URINE CLEAR (CLEAR); COLOR URINE YELLOW (YELLOW); GLUCOSE URINE NEGATIVE (NEGATIVE); KETONES URINE NEGATIVE (NEGATIVE); LEUKOCYTE ESTERASE URINE NEGATIVE (NEGATIVE); NITRITE URINE NEGATIVE (NEGATIVE); OCCULT BLOOD URINE 1+ (NEGATIVE); PROTEIN URINE 3+ (NEGATIVE); SPECIFIC GRAVITY URINE 1.014 (1.005-1.030); UROBILINOGEN URINE 0.2 E.U./dL (0.2-1.0)
[2024-11-28 18:31] LABS: COARSE GRANULAR CASTS URINE 0-5 /lpf
[2024-11-28 18:33] LABS: BACTERIA URINE NONE SEEN; RBC URINE 0-2 /hpf (0-2); SQUAMOUS EPITHELIAL CELL URINE FEW /lpf (RARE/1+); WBC URINE NONE SEEN /hpf (0-2)
[2024-11-28 20:50] LABS: ANISOCYTOSIS 1+; PLATELET ESTIMATE SLIGHTLY DECREASED
[2024-11-28 20:51] LABS: MICROCYTOSIS 1+
[2024-11-28] MEDS: LACTOBACILLUS GG CAPSULE PO SCH (21:28)
[2024-11-28] MEDS: KETOCONAZOLE 2% CREAM 15GM TOP SCH (23:43)
[2024-11-28] MEDS: PANTOT AC/MIN OIL/PET HY-PHL OINT (AQUAPHOR) TOP SCH (23:43)
[2024-11-29] VITALS (12 sets, daily range): BP systolic 110–154; BP diastolic 59–99; PULSE 64–79; RESP 13–23; TEMP 36.4–36.8; O2SAT 94–99
[2024-11-29 16:37] LABS: BASOPHILS % 0.3 % (0.0-2.0); EOSINOPHILS % 0.2 % (0.0-5.0); HEMATOCRIT. 35.2 % (42.0-52.0); HEMOGLOBIN. 10.9 g/dL (14.0-18.0); LYMPHOCYTES % 7.8 % (20.0-50.0); MEAN CORPUSCULAR HEMOGLOBIN 25.9 pg (28.0-32.0); MEAN CORPUSCULAR VOLUME 83.5 fL (80.0-94.0); MEAN PLATELET VOLUME 10.3 fl (7.4-10.4); MONOCYTES % 4.2 % (2.0-8.0); NEUTROPHILS % 87.5 % (40.0-76.0); PLATELET 99 x1000/uL (130-400); RED BLOOD CELL COUNT 4.22 mill/uL (4.7-6.1); RED CELL DISTRIBUTION WIDTH 18.5 % (11.6-14.6); WHITE BLOOD COUNT 16.8 x1000/uL (4.5-11.0)
[2024-11-29 16:42] LABS: CALCIUM 8.2 mg/dL (8.7-10.4)
[2024-11-29 16:46] LABS: CREATININE 1.6 mg/dL (0.6-1.3)
[2024-11-30] VITALS: BP 123/103; PULSE 68; RESP 19; TEMP 36.6; O2SAT 98
[2024-11-30 02:00] VITALS: BP 146/78; PULSE 74; RESP 18; O2SAT 99
[2024-11-30 04:00] VITALS: BP 132/67; PULSE 72; RESP 20; TEMP 36.3; O2SAT 98
[2024-11-30 06:00] VITALS: BP 124/72; PULSE 65; RESP 15; O2SAT 95
[2024-11-30] MEDS: GLIPIZIDE 5MG TABLET PO SCH (18:00)
[2024-11-30 20:00] VITALS: BP 131/67; PULSE 73; RESP 18; TEMP 36.2; O2SAT 93
[2024-11-30 22:00] VITALS: BP 140/85; PULSE 72; RESP 15; O2SAT 94
[2024-12-01] VITALS (12 sets, daily range): BP systolic 108–155; BP diastolic 60–95; PULSE 63–77; RESP 14–21; TEMP 36.2–36.7; O2SAT 92–96
[2024-12-01] MEDS: FUROSEMIDE 40MG TABLET PO SCH (18:58)
[2024-12-02] VITALS (13 sets, daily range): BP systolic 117–152; BP diastolic 58–89; PULSE 62–87; RESP 13–19; TEMP 36.1–37.2; O2SAT 93–100
[2024-12-02] MEDS ORDERED: LEVOFLOXACIN 250MG TABLET PO SCH (09:00)
[2024-12-03] VITALS (8 sets, daily range): BP systolic 103–140; BP diastolic 56–98; PULSE 58–83; RESP 15–20; TEMP 36.4–36.9; O2SAT 94–99
[2024-12-03] MEDS: ZOLPIDEM TARTRATE 5MG TABLET PO PRN (01:49)
== END 2024-12-03 15:40 | disposition home health service (06) | DRG 853 ==
LOC: ER 20:52 → 6WST 11-13 02:02 → EDBEDREQ 11-13 02:07 → EDBEDREQTM 11-13 02:07 → 5EST 11-15 05:47
PROVIDERS: ADMIT Internal Medicine; ATTEND Internal Medicine
PROC: 5A09357 Assistance with Respiratory Ventilation, Less than 24 Consecutive Hours, Continuous Positive Airway Pressure (ICD-10-PCS; principal; 2024-11-14)
PROC: 5A09357 Assistance with Respiratory Ventilation, Less than 24 Consecutive Hours, Continuous Positive Airway Pressure (ICD-10-PCS; 2024-11-15)
PROC: 04FL3ZZ Fragmentation of Left Femoral Artery, Percutaneous Approach (ICD-10-PCS; 2024-11-18)
PROC: 047L3Z1 Dilation of Left Femoral Artery using Drug-Coated Balloon, Percutaneous Approach (ICD-10-PCS; 2024-11-18)
PROC: B41G1ZZ Fluoroscopy of Left Lower Extremity Arteries using Low Osmolar Contrast (ICD-10-PCS; 2024-11-18)
PROC: 047N3Z1 Dilation of Left Popliteal Artery using Drug-Coated Balloon, Percutaneous Approach (ICD-10-PCS; 2024-11-18)
PROC: 047L3ZZ Dilation of Left Femoral Artery, Percutaneous Approach (ICD-10-PCS; 2024-11-18)
DX: A41.9 Sepsis, unspecified organism (principal); J18.9 Pneumonia, unspecified organism; J96.01 Acute respiratory failure with hypoxia; I13.0 Hypertensive heart and chronic kidney disease with heart failure and stage 1 through stage 4 chronic kidney disease, or unspecified chronic kidney disease; N17.9 Acute kidney failure, unspecified; E11.52 Type 2 diabetes mellitus with diabetic peripheral angiopathy with gangrene; I31.39 Other pericardial effusion (noninflammatory); I42.9 Cardiomyopathy, unspecified; I69.354 Hemiplegia and hemiparesis following cerebral infarction affecting left non-dominant side; L03.116 Cellulitis of left lower limb; I70.262 Atherosclerosis of native arteries of extremities with gangrene, left leg; Z20.822 Contact with and (suspected) exposure to COVID-19; E78.5 Hyperlipidemia, unspecified; I25.10 Atherosclerotic heart disease of native coronary artery without angina pectoris; I50.9 Heart failure, unspecified; L97.509 Non-pressure chronic ulcer of other part of unspecified foot with unspecified severity; N18.32 Chronic kidney disease, stage 3b; E11.621 Type 2 diabetes mellitus with foot ulcer; I48.91 Unspecified atrial fibrillation; K59.00 Constipation, unspecified; Z74.01 Bed confinement status; D64.9 Anemia, unspecified; G62.9 Polyneuropathy, unspecified; I27.20 Pulmonary hypertension, unspecified; S91.112A Laceration without foreign body of left great toe without damage to nail, initial encounter; I45.10 Unspecified right bundle-branch block; J45.909 Unspecified asthma, uncomplicated; L30.9 Dermatitis, unspecified; L98.492 Non-pressure chronic ulcer of skin of other sites with fat layer exposed; X58.XXXA Exposure to other specified factors, initial encounter; R32 Unspecified urinary incontinence; Z79.01 Long term (current) use of anticoagulants; Z79.02 Long term (current) use of antithrombotics/antiplatelets; Z79.82 Long term (current) use of aspirin; Z79.84 Long term (current) use of oral hypoglycemic drugs; Z87.891 Personal history of nicotine dependence; Z95.1 Presence of aortocoronary bypass graft; Z79.899 Other long term (current) drug therapy; Z89.611 Acquired absence of right leg above knee; Z91.81 History of falling; Y93.89 Activity, other specified; Y92.89 Other specified places as the place of occurrence of the external cause; Y99.8 Other external cause status
CPT/HCPCS: 36415; 36600; 37224; 71045; 73610; 73620; 75710; 76770; 80048; 80061; 80076; 80202; 81003; 82375; 82805; 82962; 83036; 83735; 83880; 84100; 84145; 84484; 85025; 85027; 85347; 87420; 87426; 87804; 93005; 93306; 93922; 94070; 94640; 94660; 94664; 94760; 98960; 99285; A4606; A6261; C1725; C1769; C1887; C1893; C1894; C2623; J0692; J1200; J1644; J1815; J1940; J2250; J2543; J2720; J2920; J3010; J3370; J3480; J3490; Q9967